=== PATIENT | female | born 1985 | race Caucasian/White ===

== ENCOUNTER 2017-07-22 01:30 | Emergency (ER) | payer MEDICAID ==
[~2017-07-22] VITALS: Ht 162.6 cm; Wt 96.5 kg
[~2017-07-22 01:30] MED LIST: PREN1TAB49 PO
[2017-07-22 01:53] VITALS: Ht 162.6 cm; Wt 96.5 kg
[2017-07-22] MEDS ORDERED: ONDANSETRON (ODT) 4 MG TAB ODT STA (02:29)
[2017-07-22] MEDS ORDERED: ACETAMINOPHEN 500 MG TAB PO STA (02:29)
[2017-07-22 03:40] LABS: ADD UMIC YES; UR ASCORBIC ACID NEGATIVE (NEGATIVE); UR BILIRUBIN (Dip) NEGATIVE (NEGATIVE); UR BLOOD (Dip) NEGATIVE (NEGATIVE); UR CLARITY CLEAR (CLEAR); UR COLOR YELLOW (YELLOW); UR GLUCOSE (Dip) NEGATIVE (NEGATIVE); UR KETONES (Dip) NEGATIVE (NEGATIVE); UR LEUKOCYTE ESTERASE (Dip) TRACE Leu/ul (NEGATIVE); UR NITRITE (Dip) NEGATIVE (NEGATIVE); UR RBC 0 /HPF (0-5); UR SPECIFIC GRAVITY (Dip) 1.006 (1.003-1.030); UR SQUAMOUS EPITHELIAL CELL FEW /HPF (FEW); UR TOTAL PROTEIN (Dip) NEGATIVE (NEGATIVE); UR UROBILINOGEN (Dip) NEGATIVE (NEGATIVE)
--- NOTE | 2017-07-22 03:48 | RADRPT ---
PROCEDURE: Obstetrical ultrasound, limited. CLINICAL INDICATION: Pelvic pain. TECHNIQUE: Multiple sonographic images of the pelvis were obtained using transabdominal technique . Images were obtained with santamaria scale and color Doppler. The images were reviewed on a PACS works tation. COMPARISON: No prior studies are available for comparison. FINDINGS: There is a single living intrauterine gestation with the fetus in a breech and variable presentation . heart tones of 143 beats per minute are identified. The placenta is posterior in location, grade 0. There is normal amniotic fluid volume with the maximum vertical pocket measuring 5.7 cm. There is no evidence of placenta previa or abruption. Measurements were made in order to determine age. The results are as follows: BPD =4.19 cm HC =15.44 cm AC =13.39 cm FL =2.85 cm. Estimated gestational age of approximately 18 weeks and 5 days. The estimated date of delivery is 12/18/2017. The EFW = 257 +/- 39 grams. Estimated weight percentage equals 40.2%. IMPRESSION: Single viable intrauterine gestation of approximately 18 weeks and 5 days, with an ultrasound DEONTE of 12/18/2017. .Vignesh Lopez MD, MD Date Time Electronically viewed and signed by .Vignesh Lopez MD, MD on 07/22/2017 03:48 .T/
[2017-07-22 03:49] LABS: ALBUMIN 3.7 g/dl (3.3-4.9); ALBUMIN/GLOBULIN RATIO 1.02; BILIRUBIN,INDIRECT 0.2 mg/dl (0-1.1); BILIRUBIN,TOTAL 0.2 mg/dl (0.2-1.3); CALCIUM 9.2 mg/dl (8.4-10.2); CREATININE 0.45 mg/dl (0.44-1.00); POTASSIUM 3.6 mmol/L (3.5-5.1); TOTAL PROTEIN 7.3 g/dl (6.1-8.1)
--- NOTE | 2017-07-22 03:50 | RADRPT ---
PROCEDURE: Abdominal ultrasound, limited. CLINICAL INDICATION: Abdominal pain. TECHNIQUE: Multiple real-time images were acquired of the patient's right upper abdomen utilizing a high resolution transducer. COMPARISON: 03/13/2014. FINDINGS: The liver demonstrates normal echogenicity and size measuring 17.2 cm. There is no focal mass or in trahepatic biliary ductal dilatation. The portal vein is patent. The gallbladder is not distended. Multiple echogenic gallstones are identified. There is focal tenderness over the gallbladder. The re is no pericholecystic fluid or gallbladder wall thickening. The common bile duct measures 18.1 m m in maximal dimension and contains an echogenic calculus measuring 1.7 cm. The visualized portions of the pancreas are unremarkable. No free fluid is identified. The right kidney is normal size and echogenicity measuring 12.2 cm. There is no focal renal mass or echogenic calculus identified. There is no obstructive uropathy. IMPRESSION: Cholelithiasis with positive sonographic Kim's sign. There is no gallbladder wall thickening or p ericholecystic fluid. Markedly dilated common bile duct measuring up to 18.1 cm with evidence of choledocholithiasis. .Vignesh Lopez MD, MD Date Time Electronically viewed and signed by .Vignesh Lopez MD, MD on 07/22/2017 03:50 .T/
[2017-07-22 03:54] LABS: BASOPHILS % 0.3 % (0.0-2.0); EOSINOPHILS # 0.2 10^3/ul (0.0-0.5); EOSINOPHILS % 1.9 % (0.0-7.0); HEMATOCRIT 31.1 % (37.0-47.0); LYMPHOCYTES % 22.9 % (15.0-51.0); MEAN CORPUSCULAR HEMOGLOBIN 33.1 pg (29.0-33.0); MEAN CORPUSCULAR HGB CONC 35.4 g/dl (32.0-37.0); MEAN CORPUSCULAR VOLUME 93.7 fl (82.0-101.0); MEAN PLATELET VOLUME 8.7 fl (7.4-10.4); MONOCYTE # 0.5 10^3/ul (0.3-0.9); MONOCYTES % 6.1 % (0.0-11.0); NEUTROPHILS % 68.1 % (39.0-77.0); PLATELET COUNT 248 10^3/UL (140-415); RED BLOOD COUNT 3.32 10^6/ul (4.20-5.40); RED CELL DISTRIBUTION WIDTH 13.2 % (11.5-14.5); WHITE BLOOD COUNT 8.9 10^3/ul (4.8-10.8)
[2017-07-22] MEDS ORDERED: SOD CHLORIDE 0.9% 1,000 ML IV ONE (04:30)
[2017-07-22 04:34] LABS: INR 1.09; PROTIME 14.1 Sec (12.2-14.2); PT RATIO 1.1
[2017-07-22 04:35] LABS: PARTIAL THROMBOPLASTIN TIME 27.5 Sec (25.0-35.0)
--- NOTE | 2017-07-22 06:29 | ERA ---
ER Documentation Chief Complaint Date/Time DATE: 07/22/17 TIME: 06:24 Chief Complaint 19 wks , upper abd pain , back pain HPI 31-year-old female presents for right upper quadrant pain 3 months. Pain is sharp and radiates to her back. Has been progressively worsening. She denies nausea vomiting diarrhea. States that she is 19 weeks denies vaginal symptoms or specific lower abdominal pain. Has had no fevers or chills. Has had care. ROS All systems reviewed and are negative except as per history of present illness. Medications Home Meds Reported Medications Vits W-Ca,Fe,Fa(<1MG) () 1 Tab Tablet, 1 TAB PO DAILY 07/27/12 Vits W-Ca,Fe,Fa(<1MG) () 1 Tab Tablet, 1 TAB PO 07/10/12 Allergies Allergies: Coded Allergies: No Known Allergy (Unverified , 05/17/12) PMhx/Soc History of Surgery: No Anesthesia Reaction: No Hx Neurological Disorder: No Hx Respiratory Disorders: No Hx Cardiac Disorders: No Hx Psychiatric Problems: No Hx Miscellaneous Medical Probl: No (GALLBLADDER) Hx Alcohol Use: No Hx Substance Use: No Hx Tobacco Use: No Smoking Status: Never smoker Physical Exam Vitals Vital Signs Date Time Temp Pulse Resp B/P Pulse Ox O2 Delivery O2 Flow Rate FiO2 07/22/17 06:06 97.9 78 20 110/58 100 Room Air 07/22/17 01:53 97.1 78 20 107/58 98 Physical Exam Const: [] Distress, appears uncomfortable Head: Atraumatic Eyes: Normal Conjunctiva ENT: Normal External Ears, Nose and Mouth. Neck: Full range of motion..~ No meningismus. Resp: Clear to auscultation bilaterally Cardio: Regular rate and rhythm, no murmurs Abd: Soft, mild to moderate right upper quadrant tenderness without guarding or rebound, non distended. Normal bowel sounds Skin: No petechiae or rashes Back: No midline or flank tenderness Ext: No cyanosis, or edema Neur: Awake and alert and oriented 3, no focal deficits Psych: Normal Mood and Affect Result Diagram: 07/22/1731407/22/17314 Results 24 hrs Laboratory Tests Test 07/22/17 02:45 07/22/17 03:15 Urine Color YELLOW Urine Clarity CLEAR Urine pH 6.0 Urine Specific [place] 1.006 Urine Ketones NEGATIVEmg/dL Urine Nitrite NEGATIVEmg/dL Urine Bilirubin NEGATIVEmg/dL Urine Urobilinogen NEGATIVEmg/dL Urine Leukocyte Esterase TRACELeu/ul Urine Microscopic RBC 0/HPF Urine Microscopic WBC 1/HPF Urine Squamous Epithelial Cells FEW/HPF Urine Hemoglobin NEGATIVEmg/dL Urine Glucose NEGATIVEmg/dL Urine Total Protein NEGATIVEmg/dl White Blood Count 8.910^3/ul Red Blood Count 3.3210^6/ul Hemoglobin 11.0g/dl Hematocrit 31.1% Mean Corpuscular Volume 93.7fl Mean Corpuscular Hemoglobin 33.1pg Mean Corpuscular Hemoglobin Concent 35.4g/dl Red Cell Distribution Width 13.2% Platelet Count 41936^3/UL Mean Platelet Volume 8.7fl Neutrophils % 68.1% Lymphocytes % 22.9% Monocytes % 6.1% Eosinophils % 1.9% Basophils % 0.3% Nucleated Red Blood Cells % 0.0/100WBC Neutrophils # 6.010^3/ul Lymphocytes # 2.010^3/ul Monocytes # 0.510^3/ul Eosinophils # 0.210^3/ul Basophils # 0.010^3/ul Nucleated Red Blood Cells # 0.010^3/ul Prothrombin Time 14.1Sec Prothrombin Time Ratio 1.1 INR International Normalized Ratio 1.09 Activated Partial Thromboplast Time 27.5Sec Sodium Level 141mmol/L Potassium Level 3.6mmol/L Chloride Level 110mmol/L Carbon Dioxide Level 22mmol/L Anion Gap 13 Blood Urea Nitrogen 7mg/dl Creatinine 0.45mg/dl Glucose Level 93mg/dl Calcium Level 9.2mg/dl Total Bilirubin 0.2mg/dl Direct Bilirubin 0.00mg/dl Indirect Bilirubin 0.2mg/dl Aspartate Amino Transf (AST/SGOT) 18IU/L Alanine Aminotransferase (ALT/SGPT) 25IU/L Alkaline Phosphatase 53IU/L Total Protein 7.3g/dl Albumin 3.7g/dl Globulin 3.60g/dl Albumin/Globulin Ratio 1.02 Beta HCG, Quantitative 75024.0mIU/ml Current Medications Medications (Trade) Dose Ordered Sig/Eren Route PRN Reason Start Time Stop Time Status Last Admin Dose Admin Ondansetron HCl (Zofran Odt) 4 mg ONCE STAT ODT 9/30/17 02:29 07/22/17 02:31 DC 07/22/17 03:17 Acetaminophen 1000 mg 1,000 mg ONCE STAT PO 07/22/17 02:29 07/22/17 02:31 DC 07/22/17 03:17 Sodium Chloride (NS) 1,000 ml @ 1,000 mls/hr Q1H ONCE IV 07/22/17 04:30 07/22/17 05:29 DC 07/22/17 04:26 Procedures/MDM Large common bile duct stone. Patient was given a liter of normal saline as well as Tylenol and Zofran. Her nausea improved and did not want any pain medication that could harm her baby. I spoke with Dr. Gaviria, spray worker, who recommended immediate transfer to a tertiary care center for surgical evaluation for likely removal of stone. Patient stated that she would prefer to go to [facility] because she lives near it. [facility] any beds, [facility] nursing strip mine supervisor answer the phone and stated that she would not accept transfer without admitting doctor and would not provide any further assistance. [facility] was called and patient was accepted to [facility]. She is currently stable has no signs of pancreatitis. Right upper quadrant ultrasound interpretation: 1.7 cm stone with 1.8 cm dilated common bile duct, signs of acute cholecystitis such as gallbladder wall thickening or pericystic colic fluid. Obstetrics ultrasound: Healthy 18 week with no signs of acute abnormality Departure Diagnosis: Primary Impression: Choledocholithiasis Additional Impressions: Abdominal pain complicating Nausea Condition: Serious REHAN PFEIFFER DO Jul 22, 2017 06:29
[2017-07-22 07:45] VITALS: BP 109/57; PULSE 62; RESP 20; TEMP 98.2
== END 2017-07-22 07:57 | disposition short-term general hospital (02) ==
LOC: FTE 01:30
DX: O99.612 Diseases of the digestive system complicating pregnancy, second trimester (principal); K80.50 Calculus of bile duct without cholangitis or cholecystitis without obstruction; R10.2 Pelvic and perineal pain; Z3A.18 18 weeks gestation of pregnancy
CPT/HCPCS: 36415; 76705; 76805; 80053; 81001; 84702; 85025; 85610; 85730; 86900; 86901; J7030; Z7502; Z7610